=== PATIENT | male | born 1940 | race Caucasian/White ===

== ENCOUNTER → 2018-11-17 | Outpatient (CLI) | payer MEDICARE ==
[~2018-11-17] MED LIST: OMNIPAQUE 350 MG/ML, 100ML BOTTLE ONE
== END | disposition home or self-care (01) ==
LOC: CFH 11:45
PROVIDERS: ATTEND Internal Medicine Hematology & Oncology
DX: C81.10 Nodular sclerosis Hodgkin lymphoma, unspecified site (principal); J98.4 Other disorders of lung; N28.1 Cyst of kidney, acquired; N26.1 Atrophy of kidney (terminal)
CPT/HCPCS: 71260; 74177; Q9967

== ENCOUNTER 2018-12-16 15:39 | Outpatient (CLI) | payer MEDICARE | END 2018-12-16 23:59 | disposition home or self-care (01) | LOC: CVU 15:39 | PROVIDERS: ATTEND Internal Medicine Cardiovascular Disease | DX: I08.1 Rheumatic disorders of both mitral and tricuspid valves (principal); I48.91 Unspecified atrial fibrillation; I45.19 Other right bundle-branch block | CPT/HCPCS: 93306 ==

== ENCOUNTER → 2019-12-21 | Outpatient (CLI) | payer MEDICARE | END | disposition home or self-care (01) | LOC: CFH 11:24 | PROVIDERS: ATTEND Internal Medicine Hematology & Oncology | DX: C81.10 Nodular sclerosis Hodgkin lymphoma, unspecified site (principal); J47.9 Bronchiectasis, uncomplicated; J98.4 Other disorders of lung; N26.1 Atrophy of kidney (terminal); N28.1 Cyst of kidney, acquired | CPT/HCPCS: 71260; 74177; Q9967 ==